=== PATIENT | male | born 1940 | race African-American/Black ===

== ENCOUNTER 2016-09-10 20:08 | Inpatient (IN) | payer OTHER ==
--- NOTE | ~2016-09-10 | HP ---
History And Physical [facility] [address] [place]. [address] NAME: DULCE DYE JR : 42 STATUS : ADM Chace PAT#: [id number] AGE: 76 ADM/REG DATE : 09/10/16 MR#: [id number] REPORT SERV DATE: 09/11/16 DICTATED BY: JOSE IVORY DATE: 09/11/16 REPORT STATUS : Draft TRANSCRIBED BY: MODL DATE: 09/11/16 DATE OF ADMISSION: 09/10/2016 CHIEF COMPLAINT: A 76-year-old male presenting with vertigo, gait disturbance, and syncopal episode. HISTORY PRESENT ILLNESS: The patient's history was obtained through careful interview with the patient, coupled with review of [facility] and [facility] medical records. The patient was actually hospitalized in June 2016 at [facility] for syncope, unstable gait (we are requesting records from [facility] to review this hospital stay). He does not believe he had any specific diagnosis given to him at that time. He has continued to have intermittent symptoms similar to that presentation over the last few months. Now on the day prior to , he felt lightheaded and actually had a syncopal episode where he hit the side of his head. He came to the emergency department last night and felt better and so was discharged back home. But now on leading up to admission, he was stumbling once again and had vertigo symptoms. He felt off balance, slightly nauseated, but no vomiting. Sometimes, he seems to fall off to the right side especially. He describes the discomfort in his right buttocks and back from when he fell two days ago, an aching quality, 8/10 in severity. He describes dyspnea on exertion with chronic bronchitis, but no current cough. No chest pain. No palpitations. No fevers or chills. He has had a chronic right foot drop ever since the knee surgery years ago. He describes of prostate symptoms with difficulty with urinary flow, nocturia, and occasional painful urination as well. REVIEW OF SYSTEMS: Otherwise, a 14-point review of systems was obtained and was negative. PAST MEDICAL HISTORY: 1. Hepatitis C. 2. Gout. 3. Elevated cholesterol. 4. Hypertension. 5. Depression. 6. Obstructive sleep apnea, but does not use a CPAP. 7. Chronic alcoholism, but has been abstinent since June 2016. There is a history of DTs. 8. Cholelithiasis. History And Physical [address] [place]. [address] NAME: DULCE DYE JR : 42 STATUS : ADM Chace PAT#: [id number] AGE: 76 ADM/REG DATE : 09/10/16 MR#: [id number] REPORT SERV DATE: 09/11/16 DICTATED BY: JOSE IVORY DATE: 09/11/16 REPORT STATUS : Draft TRANSCRIBED BY: SAKSHI DATE: 09/11/16 9. A solitary episode of atrial fibrillation remotely. 10.Leg ulcer. 11.Benign prostatic hypertrophy. PAST SURGICAL HISTORY: 1. Left knee surgery x3. 2. Lumbar spine surgery. 3. Hand surgery. 4. Femur fracture surgery. ALLERGIES: NO KNOWN DRUG ALLERGIES. SOCIAL HISTORY: Quit alcohol in June 2016, but has always been a heavy drinker of vodka and beer. He has never been a smoker. He used to use marijuana, but has quit. There is also a history of using cocaine. He has children. He lives with his sister. He worked previously for the [employer]. FAMILY HISTORY: Mother with heart disease. Father in a motor vehicle accident. CURRENT MEDICATIONS: Include albuterol inhaler; allopurinol 300 mg p.o. daily; aspirin 81 mg p.o. daily; Lipitor 40 mg p.o. daily; Lexapro 20 mg p.o. daily; Prozac 40 mg p.o. daily; melatonin 5 mg at bedtime; Percocet p.r.n.; Bactrim double strength p.o. b.i.d., started on 09/05/2016; Flomax 0.4 mg p.o. daily; trazodone 100 mg p.o. q.h.s.; and triamcinolone cream. PHYSICAL EXAMINATION: VITAL SIGNS: Temperature 97.8, pulse 85, blood pressure 127/66, respiratory rate 19, and O2 saturation 94% on room air. GENERAL: A pleasant, cooperative male, in no evidence of distress at this time. NEUROLOGICAL: Cranial nerves II through XII are intact and symmetrical. The patient has no nystagmus. The patient has 5/5 strength in upper and lower extremities that are symmetrical. HEENT: Pupils are equal, round, and reactive to light. No conjunctival pallor. No scleral icterus. Nares are patent. Oropharynx is clear of obstruction. Moist mucous membranes. NECK: Trachea midline. No thyromegaly. LYMPH: No cervical lymphadenopathy. No supraclavicular lymphadenopathy. RESPIRATORY: Clear to auscultation at bases. No wheezes, rales, or rhonchi. Normal respiratory effort. CARDIOVASCULAR: Regular rate and rhythm. No murmurs, rubs, or gallops. No current extremity edema is appreciated. ABDOMEN: Soft, nontender, and nondistended. Normal bowel sounds auscultated throughout. No hepatosplenomegaly. DERMATOLOGICAL: Warm and dry extremities. No pallor. No cyanosis. PSYCHIATRIC: Normal affect. Good mood. Alert and oriented x3. LABORATORY DATA: White blood cell count 5.0, hemoglobin 13, hematocrit 39, and platelets 166. Sodium 141, potassium 4.3, chloride 103, bicarb 30, BUN 10, creatinine 0.82, and History And Physical [address] [address] NAME: DULCE DYE JR : 42 STATUS : ADM Chace PAT#: [id number] AGE: 76 ADM/REG DATE : 09/10/16 MR#: [id number] REPORT SERV DATE: 09/11/16 DICTATED BY: JOSE IVORY DATE: 09/11/16 REPORT STATUS : Draft TRANSCRIBED BY: MODL DATE: 09/11/16 glucose 77. Urinalysis shows 4 hyaline casts, lipase 613. Troponin negative. INR 1.1. STUDIES: 1. Chest x-ray by my own evaluation shows atelectasis changes, but no acute abnormality. 2. EKG by my own evaluation shows sinus rhythm, no major abnormalities. 3. CT scan of the abdomen and pelvis shows no acute intraabdominal process. 4. CT scan of the brain without contrast shows no acute intracranial process. ASSESSMENT AND PLAN: 1. Gait disturbance, syncope, vertigo. Check an MRI of the brain. Consult Neurology. Continue aspirin. Request records from [facility] of June 2016. If the patient has orthostasis, we may need to hold trazodone. 2. Elevated lipase. Negative CT scan of the abdomen. No abdominal pain. 3. History of alcoholism, but quit in June 2016. Place on a banana bag IV daily. Check urine drug screen. 4. Hepatitis C. KPL/MODL Jose Ivory M.D. / [id number] CC: MD RAYSA Will WINIFRED
--- NOTE | ~2016-09-10 | CN ---
Consultation Report [facility] [address] [place]. [address] NAME: DULCE DYE JR : 42 STATUS : ADM Chace PAT#: [id number] AGE: 76 ADM/REG DATE : 09/10/16 MR#: [id number] REPORT SERV DATE: 09/12/16 DICTATED BY: LAVONNE MAN DATE: 09/12/16 REPORT STATUS : Draft TRANSCRIBED BY: MODL DATE: 09/12/16 NEUROLOGY CONSULTATION DATE OF CONSULTATION: 09/12/2016 REASON FOR CONSULTATION: Syncope, ataxia, and vertigo. HOSPITALIST: Doug Mckeon M.D. HISTORY OF PRESENT ILLNESS: The patient is a 76-year-old male who started having ataxia approximately a month ago. He states that his symptoms come and go. However, he started veering to the right approximately a month ago. He states that he has to use a walker when ambulating. When asked to define his dizziness more clearly, the patient has difficulty in doing so. He does mention that things do not "spin around," rather he has a feeling of imbalance. He also mentions that he has chronic right foot drop. When fitted for a foot brace, he seemed to have better balance. However, his insurance will not pay for one and this seems to cause him to fall. Sunday, he had a "blackout spell." He was just standing up and suddenly "something hit him upside the head." He passed out. He was not out for long and was back to his self. He did not feel this coming on. He did not experience vertiginous symptoms, nor did he experience dizziness. He has not been sick. He has not had an upper respiratory infection, fever, chills, diarrhea, or nausea. The patient also mentions that he has had surgeries on his left eye. Since his surgery, he will occasionally have eye pain above the eye. He denies any chronic headaches. He denies any double vision or temporal pain. PAST MEDICAL HISTORY: Hepatitis C, gout, hyperlipidemia, hypertension, depression, obstructive sleep apnea (noncompliant with CPAP), chronic alcohol abuse (abstinent since 06/2016), history of DTs, cholelithiasis, one episode of atrial fibrillation, leg ulcer, and BPH. PAST SURGICAL HISTORY: Left total knee arthroplasty x3, lumbar surgery, right thumb surgery, left femur fracture with ORIF, and bilateral cataract extraction with lens implantation. HOME MEDICATION LIST: Includes ProAir inhaler, Zyloprim 300 mg daily, aspirin 81 mg daily, Lipitor 40 mg at bedtime, Lexapro 20 mg daily plus Prozac 40 mg daily, melatonin 5 mg at bedtime, Percocet 5/325 mg p.r.n., Bactrim DS one tablet b.i.d. x7 days, Flomax 0.4 mg q.a.m., trazodone 100 mg at bedtime, and triamcinolone 0.1% cream topically twice a day to affected areas. ALLERGIES: NONE. SOCIAL HISTORY: The patient is single. He lives with his sister. He has 10 children. He works with the [employer]. He has been a heavy drinker most of his Consultation Report [address] [address] NAME: DULCE DYE JR : 42 STATUS : ADM Chace PAT#: [id number] AGE: 76 ADM/REG DATE : 09/10/16 MR#: [id number] REPORT SERV DATE: 09/12/16 DICTATED BY: LAVONNE MAN DATE: 09/12/16 REPORT STATUS : Draft TRANSCRIBED BY: SAKSHI DATE: 09/12/16 life, drinking beer and vodka. He has a history of marijuana and cocaine abuse. FAMILY HISTORY: His mother from coronary artery disease. His dad in a motor vehicle accident. REVIEW OF SYSTEMS: See HPI. PHYSICAL EXAMINATION: VITAL SIGNS: The patient is a 76-year-old male who stands 6 feet 1 inch tall and weighs 206 pounds. He is afebrile. Heart rate 81, respiratory rate 18, O2 saturations on room air of 93%, blood pressure 139/73. NEURO: The patient is oriented x4. He does communicate appropriately. Speech is clear. Language is fluent. Right pupil 2 mm, left pupil 4 mm and irregularly shaped. They are reactive. Cranial nerves 2 through 12 are intact. He can finger to nose without ataxia. No pronator drift. Upper extremity strength 5/5. Upper extremity reflexes 1+ bilaterally. He does report slightly diminished sensation on the left when compared to the right. Lower extremity strength is 4/5 bilaterally. He does have chronic right foot drop. Unable to elicit patellar reflexes on the left (knee surgery x3), in the right, 2+. Downgoing toes. The patient does have markedly diminished sensation in the lower extremities. Decreased pinprick and light touch sensation from the toes to the knees bilaterally. Decreased temperature sensation in the same distribution and vibratory sense. Position sense is not intact. I did not get him up to ambulate. NECK: No carotid bruits, JVD, or thyromegaly. CHEST: Lung sounds clear. CARDIAC: Regular rate and rhythm. LABORATORY DATA: CBC is normal. BMP normal. UA negative for UTI. INR 1.1. Ammonia level 158, lipase 613. TSH normal. Urine drug screen positive for opiates. MRI of the brain, no acute changes. Midbrain atrophy. ASSESSMENT/PLAN: 1. Ataxia, multifactorial in nature. The patient has peripheral neuropathy. Lab work will be checked. PT/OT consulted. He will be fit for a brace for his right footdrop. Safety precautions are in place and patient education in regard to peripheral neuropathy. 2. The patient has hyperammonemia. His ammonia level will be rechecked along with liver panel. 3. Questionable cervical stenosis. He will undergo an MRI of the C-spine. 4. Syncope with collapse. Etiology unknown. Orthostatic vital signs will be checked. This does not sound like seizure by history and his MRI came back negative for an acute event. 5. History of alcohol abuse. The patient will be placed on thiamine and folate p.o. Consultation Report [address] [address] NAME: DULCE DYE : 42 STATUS : ADM Chace PAT#: [id number] AGE: 76 ADM/REG DATE : 09/10/16 MR#: [id number] REPORT SERV DATE: 09/12/16 DICTATED BY: LAVONNE MAN DATE: 09/12/16 REPORT STATUS : Draft TRANSCRIBED BY: SAKSHI DATE: 09/12/16 Thank you for including us in consultation. We will follow with you. XAVIER/SAKSHI Lavonne Man [facility]- / [id number] CC: MD RAYSA Will WINIFRED
--- NOTE | ~2016-09-10 | DS ---
Discharge Summary [facility] [address]. [address] NAME: DULCE DYE JR : 42 STATUS : DIS IN PAT#: [id number] AGE: 76 ADM/REG DATE : 09/10/16 MR#: [id number] REPORT SERV DATE: 09/16/16 DICTATED BY: DELTA DUNBAR DATE: 09/15/16 REPORT STATUS : Draft TRANSCRIBED BY: MODL DATE: 09/15/16 ADMISSION DATE: 09/10/2016 DISCHARGE DATE: 09/15/2016 PROCEDURES DONE: 1. On 09/10/2016, CT of the brain without contrast: Unremarkable noncontrast head CT. No acute intracranial pathology. 2. On 09/10/2016, chest x-ray: There are atelectasis changes left lung base suggestive of injury to the underlying chest wall on the left side. 3. On 09/10/2016, x-ray right ribs: Atelectatic changes left, not right-sided, questionable possible fracture of left ribs. May wish to repeat left rib series or pursue ultrasound. No focal area of tenderness over the rib cage to demonstrate nondisplaced fracture. 4. On 09/11/2016, MRI of the head without contrast. There is some mild mid brain atrophy, nonspecific, that is sometimes to be seen as a precursor to a Parkinson type presentation. Ventricles are midline, hemispheres reflect at best some mild atrophy and there are some mild deep white matter, small vessel ischemic gliotic changes in right and left ventricles. 5. On 09/11/2016, 2D echo: Left ventricular function intact at 55%. Left ventricular diastolic dysfunction. Right ventricular systolic function intact. Mild aortic regurg. No previous study to compare. 6. On 09/12/2016, MRA of the head without contrast: Unremarkable intracranial MRA. Developmental variance small right A1 segment. The patient anterior communicating artery allowing supply to the right anterior cerebral artery from the left anterior for circulation. Right posterior cerebral artery supplied from the anterior circulation through a patent posterior communicating artery. 7. On 09/12/2016, MRA of the neck: Unremarkable MRI of the carotid arteries, no significant atherosclerotic plaque or stenosis. Normal caliber and anterograde flow bilateral vertebral arteries. 8. On 09/12/2016, MRA of cervical: Severe degenerative disk disease C3-C4, moderate degenerative disk disease C4-C5, and severe degenerative disease C5-C7. Multilevel [id number] disk osteophyte formation resulting in mild central spinal stenosis C2- C3, very mild central spinal stenosis C5-C6, and moderate central spinal stenosis C6-C7 of questionable significance. No associated cord contour deformity or signal changes. No significant neural foraminal narrowing. Straightening of the usual cervical spine lordosis, although otherwise normal alignment. CONSULT: Neurology. REASON FOR ADMISSION: Vertigo with gait disturbance. HISTORY OF HOSPITAL STAY: A 76-year-old black male with past medical history of hepatitis C; gout; hypercholesterolemia; hypertension; obstructive sleep apnea, but not using CPAP; history of alcoholism, abstinence since June 2016; BPH, presenting with vertigo with gait disturbance, unknown duration. The patient has been having issue with his dizziness. Apparently, the patient states he has not been able to get items off a shelf as well as Discharge Summary [address] [place]. [address] NAME: DULCE DYE JR : 42 STATUS : DIS IN [facility]#: [id number] AGE: 76 ADM/REG DATE : 09/10/16 MR#: [id number] REPORT SERV DATE: 09/16/16 DICTATED BY: DELTA DUNBAR DATE: 09/15/16 REPORT STATUS : Draft TRANSCRIBED BY: SAKSHI DATE: 09/15/16 tying his shoe lace without getting dizzy. The patient seems to be suffering from benign positional vertigo. The patient was started on scopolamine and meclizine, which improved the patient dizziness. However, the medication has also been titrated up and his symptoms have greatly improved. DISPOSITION: The patient is feeling fine, no complaint. ACTIVITY: As tolerated. DIET: Cardiac. INSTRUCTIONS UPON DISCHARGE: The patient to follow up with PMD within one to two weeks. MEDICATIONS UPON DISCHARGE: 1. Allopurinol 300 mg p.o. daily. 2. Aspirin 81 mg p.o. daily. 3. Lipitor 40 mg p.o. q.h.s. 4. Lexapro 20 mg p.o. daily. 5. Prozac 40 mg p.o. daily. 6. Melatonin 5 mg p.o. q.h.s. 7. Flomax 0.4 mg p.o. daily. 8. Trazodone 100 mg p.o. q.h.s. 9. Triamcinolone cream 0.1% application topical b.i.d. 10.Oxycodone 5/325 mg one tablet p.o. q.6 hours p.r.n. 11.ProAir one to two puffs q.4 hours p.r.n. DIAGNOSES UPON DISCHARGE: 1. Vertigo with gait disturbance secondary to benign positional vertigo. 2. Benign positional vertigo. 3. History of alcohol abuse, quit in June 2016. 4. Hepatitis C. 5. Gout. 6. Hypercholesterolemia. 7. Hypertension. 8. Depression. 9. History of obstructive sleep apnea, not on continuous positive airway pressure. VIET/SAKSHI Delta Dunbar MD / [id number] CC: Discharge Summary [address] [address] NAME: DULCE DYE JR : 42 STATUS : DIS IN PAT#: [id number] AGE: 76 ADM/REG DATE : 09/10/16 MR#: [id number] REPORT SERV DATE: 09/16/16 DICTATED BY: DELTA DUNBAR DATE: 09/15/16 REPORT STATUS : Draft TRANSCRIBED BY: SAKSHI DATE: 09/15/16 MD Leigh Carias MD
[~2016-09-10 20:08] MED LIST: AMB10 PO; CIALIS10 MG PO; ENDOCET1 TA3 PO; FLEX PO; LEXAPRO20 PO; LORT7 PO; LORTAB 5 PO; NORV10 PO; OS500+D PO; PEP20 PO; ULTRAM50 PO; VENTOLIN HFA INH; Z300 PO
[2016-09-10] MEDS ORDERED: MELATONIN5 M1 PO (23:49)
[2016-09-10] MEDS ORDERED: SEROQUEL50 MG PO (23:49)
[2016-09-10] MEDS ORDERED: PROZAC40 MG PO (23:49)
[2016-09-10] MEDS ORDERED: FLOMAX4 PO (23:50)
[2016-09-10] MEDS ORDERED: BACTRIM DS1 TAB PO (23:50)
[2016-09-10] MEDS ORDERED: LEXAPRO20 PO (23:51)
[2016-09-10] MEDS ORDERED: ASAB PO (23:51)
[2016-09-10] MEDS ORDERED: LIPITOR40 PO (23:51)
[2016-09-10] MEDS ORDERED: Z300 PO (23:51)
[2016-09-10] MEDS ORDERED: IMDUR30 PO (23:52)
[2016-09-10] MEDS ORDERED: PRIN5 PO (23:52)
[2016-09-11] LABS: BASOPHILS 0.2 %; BASOPHILS ABSOLUTE 0.01 10/3/uL (0.0-0.16); EOSINOPHILS 5.8 %; EOSINOPHILS ABSOLUTE 0.29 10/3/uL (0.0-0.53); HEMATOCRIT 38.8 % (40.0-51.0); IMMATURE GRANULOCYTES 0.2 %; IMMATURE GRANULOCYTES ABSOLUTE 0.01 10/3/uL (0.0-0.11); MEAN CORPUS HGB CONC 33.5 g/dL (32.0-36.0); MEAN CORPUSCULAR HEMOGLOB 31.5 pg (26.0-34.0); MEAN CORPUSCULAR VOLUME 93.9 fL (80-100); MEAN PLATELET VOLUME 9.4 fL (9.2-13.0); MONOCYTES 6.6 %; MONOCYTES ABSOLUTE 0.33 10/3/uL (0.21-1.20); NEUTROPHILS 65.2 %; NEUTROPHILS ABSOLUTE 3.26 10/3/uL (2.02-8.40); PLATELET COUNT 166 10/3/uL (150-400); RBC DISTRIBUTION WIDTH 14.5 % (12.0-16.0); RED CELL COUNT 4.13 10/6/uL (4.7-6.1)
[2016-09-11 00:01] LABS: MANUAL DIFF NO %
[2016-09-11] MEDS ORDERED: PCET PO (00:07)
[2016-09-11 00:08] LABS: INTERNATIONAL NORMAL RATI 1.1 UNITS (-); PARTIAL THROMBO TIME 32.7 SEC (22.5-37.2); PROTIME (NOT ORD) 13.7 SEC (12.0-14.5)
[2016-09-11] MEDS ORDERED: PROAIR HFA INH (00:18)
[2016-09-11] MEDS ORDERED: TRIAMCINOLONE C80 GM TOP (00:19)
[2016-09-11] MEDS ORDERED: TRAZ100 PO (00:20)
[2016-09-11 00:22] LABS: BUN (BLOOD UREA NITROGEN) 10 MG/DL (6-23); CALCIUM, SERUM 8.7 MG/DL (8.5-10.4); CHEST PAIN PROFILE TAT 0 Hrs 28 Mins; CHLORIDE, SERUM 103 MMOL/L (96-112); CO2 (CARBON DIOXIDE) 30 MMOL/L (24-34); CREATININE 0.82 MG/DL (0.70-1.30); GFR AFRICAN AMERICAN 100 ML/MIN (>=60); GFR NON AFRICAN AMERICAN 87 ML/MIN (>=60); GLUCOSE, SERUM 77 MG/DL (60-99); POTASSIUM, SERUM 4.3 MMOL/L (3.5-5.3); SODIUM, SERUM 141 MMOL/L (135-148); TROPONIN I <0.02 NG/ML (<0.05)
[2016-09-11 06:33] LABS: BASOPHILS 0.2 %; BASOPHILS ABSOLUTE 0.01 10/3/uL (0.0-0.16); EOSINOPHILS 6.9 %; EOSINOPHILS ABSOLUTE 0.33 10/3/uL (0.0-0.53); HEMATOCRIT 40.6 % (40.0-51.0); HEMOGLOBIN 13.8 g/dL (13.6-17.8); IMMATURE GRANULOCYTES 0.2 %; IMMATURE GRANULOCYTES ABSOLUTE 0.01 10/3/uL (0.0-0.11); LYMPHOCYTES 17.9 %; LYMPHOCYTES ABSOLUTE 0.85 10/3/uL (0.67-4.30); MEAN CORPUSCULAR HEMOGLOB 32.2 pg (26.0-34.0); MEAN CORPUSCULAR VOLUME 94.6 fL (80-100); MEAN PLATELET VOLUME 9.6 fL (9.2-13.0); MONOCYTES 9.5 %; MONOCYTES ABSOLUTE 0.45 10/3/uL (0.21-1.20); NEUTROPHILS 65.3 %; PLATELET COUNT 177 10/3/uL (150-400); RBC DISTRIBUTION WIDTH 14.3 % (12.0-16.0); RED CELL COUNT 4.29 10/6/uL (4.7-6.1); WHITE BLOOD CELLS 4.8 10/3/uL (4.5-10.5)
[2016-09-11 06:34] LABS: MANUAL DIFF NO %
[2016-09-11 06:51] LABS: ALBUMIN 3.5 G/DL (3.5-5.0); BUN (BLOOD UREA NITROGEN) 9 MG/DL (6-23); CALCIUM, SERUM 8.7 MG/DL (8.5-10.4); CHLORIDE, SERUM 106 MMOL/L (96-112); CHOL/HDL RATIO(NOT ORDER) 1.5 (0-5); CHOLESTEROL 126 MG/DL (< 200); CO2 (CARBON DIOXIDE) 26 MMOL/L (24-34); GFR AFRICAN AMERICAN 101 ML/MIN (>=60); GFR NON AFRICAN AMERICAN 87 ML/MIN (>=60); GLOBULIN 3.6 G/DL (2.5-4.1); GLUCOSE, SERUM 76 MG/DL (60-99); HDL CHOLESTEROL 85 MG/DL (> 39); LDL CHOLESTEROL 26 MG/DL (< 130); NON-HDL CHOLESTEROL 41 MG/DL (< 160); POTASSIUM, SERUM 4.2 MMOL/L (3.5-5.3); SGOT(AST) 29 U/L (5-40); SGPT(ALT) 30 U/L (5-65); SODIUM, SERUM 140 MMOL/L (135-148); TOTAL BILIRUBIN 0.7 MG/DL (0-1.2); TOTAL PROTEIN 7.1 G/DL (6.0-8.5); TRIGLYCERIDE 75 MG/DL (< 150); TROPONIN I <0.02 NG/ML (<0.05)
[2016-09-11 06:54] LABS: ALKALINE PHOSPHATASE 74 U/L (45-117); PHOSPHORUS, SERUM 3.6 MG/DL (2.5-4.5)
[2016-09-11 07:56] LABS: SED RATE 8 MM/HR (0-15)
[2016-09-11 08:03] LABS: B NATRIURETIC PEPTIDE (BNP) 66.6 PG/ML (< 100.0)
[2016-09-11 13:02] LABS: INTERNATIONAL NORMAL RATI 1.1 UNITS (-); PARTIAL THROMBO TIME 37.5 SEC (22.5-37.2); PROTIME (NOT ORD) 13.9 SEC (12.0-14.5)
[2016-09-12 01:08] LABS: AMPHETAMINES (NOT ORD) NEG (NEG); BENZODIAZEPINES (NOT ORD) NEG (NEG); CANNABINOIDS (THC) NEG (NEG); COCAINE (NOT ORDERED) NEG (NEG); PHENCYCLIDINE(PCP) NEG (NEG)
[2016-09-12 01:09] LABS: BARBITURATES (NOT ORDERED NEG (NEG); OPIATES POS (NEG); TRICYCLICS NEG (NEG)
[2016-09-12 07:00] LABS: BASOPHILS 0.2 %; BASOPHILS ABSOLUTE 0.01 10/3/uL (0.0-0.16); EOSINOPHILS 6.4 %; EOSINOPHILS ABSOLUTE 0.28 10/3/uL (0.0-0.53); HEMATOCRIT 37.8 % (40.0-51.0); HEMOGLOBIN 12.8 g/dL (13.6-17.8); IMMATURE GRANULOCYTES 0.2 %; IMMATURE GRANULOCYTES ABSOLUTE 0.01 10/3/uL (0.0-0.11); LYMPHOCYTES ABSOLUTE 0.79 10/3/uL (0.67-4.30); MEAN CORPUS HGB CONC 33.9 g/dL (32.0-36.0); MEAN CORPUSCULAR HEMOGLOB 31.6 pg (26.0-34.0); MEAN CORPUSCULAR VOLUME 93.3 fL (80-100); MEAN PLATELET VOLUME 9.4 fL (9.2-13.0); MONOCYTES 10.9 %; MONOCYTES ABSOLUTE 0.48 10/3/uL (0.21-1.20); NEUTROPHILS 64.3 %; NEUTROPHILS ABSOLUTE 2.83 10/3/uL (2.02-8.40); PLATELET COUNT 163 10/3/uL (150-400); RBC DISTRIBUTION WIDTH 14.1 % (12.0-16.0); RED CELL COUNT 4.05 10/6/uL (4.7-6.1); WHITE BLOOD CELLS 4.4 10/3/uL (4.5-10.5)
[2016-09-12 07:06] LABS: MANUAL DIFF NO %
[2016-09-12 07:13] LABS: A/G RATIO 1.1 (0.7-1.9); ALBUMIN 3.3 G/DL (3.5-5.0); ALKALINE PHOSPHATASE 64 U/L (45-117); BUN (BLOOD UREA NITROGEN) 10 MG/DL (6-23); CALCIUM, SERUM 8.6 MG/DL (8.5-10.4); CHLORIDE, SERUM 106 MMOL/L (96-112); CO2 (CARBON DIOXIDE) 24 MMOL/L (24-34); CREATININE 0.73 MG/DL (0.70-1.30); GFR AFRICAN AMERICAN 105 ML/MIN (>=60); GFR NON AFRICAN AMERICAN 91 ML/MIN (>=60); GLOBULIN 3.1 G/DL (2.5-4.1); GLUCOSE, SERUM 76 MG/DL (60-99); SGOT(AST) 25 U/L (5-40); SGPT(ALT) 28 U/L (5-65); SODIUM, SERUM 139 MMOL/L (135-148); TOTAL BILIRUBIN 1.2 MG/DL (0-1.2); TOTAL PROTEIN 6.4 G/DL (6.0-8.5)
[2016-09-12 13:29] LABS: ALBUMIN 3.2 G/DL (3.5-5.0); DIRECT BILIRUBIN 0.2 MG/DL (0.0-0.4); TOTAL PROTEIN 6.3 G/DL (6.0-8.5)
[2016-09-12 13:30] LABS: INDIRECT BILIRUBIN(NOT ORDER) 0.5 MG/DL (0.1-0.9); TOTAL BILIRUBIN 0.7 MG/DL (0-1.2)
[2016-09-13 08:10] LABS: BASOPHILS 0.4 %; BASOPHILS ABSOLUTE 0.02 10/3/uL (0.0-0.16); EOSINOPHILS 5.5 %; EOSINOPHILS ABSOLUTE 0.27 10/3/uL (0.0-0.53); HEMATOCRIT 41.1 % (40.0-51.0); HEMOGLOBIN 13.8 g/dL (13.6-17.8); IMMATURE GRANULOCYTES 0.2 %; IMMATURE GRANULOCYTES ABSOLUTE 0.01 10/3/uL (0.0-0.11); LYMPHOCYTES 19.4 %; LYMPHOCYTES ABSOLUTE 0.95 10/3/uL (0.67-4.30); MEAN CORPUS HGB CONC 33.6 g/dL (32.0-36.0); MEAN CORPUSCULAR HEMOGLOB 32.2 pg (26.0-34.0); MEAN CORPUSCULAR VOLUME 95.8 fL (80-100); MEAN PLATELET VOLUME 9.6 fL (9.2-13.0); MONOCYTES 6.3 %; MONOCYTES ABSOLUTE 0.31 10/3/uL (0.21-1.20); NEUTROPHILS 68.2 %; NEUTROPHILS ABSOLUTE 3.33 10/3/uL (2.02-8.40); PLATELET COUNT 156 10/3/uL (150-400); RBC DISTRIBUTION WIDTH 14.5 % (12.0-16.0); RED CELL COUNT 4.29 10/6/uL (4.7-6.1); WHITE BLOOD CELLS 4.9 10/3/uL (4.5-10.5)
[2016-09-13 08:11] LABS: MANUAL DIFF NO %
[2016-09-13 08:39] LABS: A/G RATIO 0.9 (0.7-1.9); ALBUMIN 3.5 G/DL (3.5-5.0); ALKALINE PHOSPHATASE 66 U/L (45-117); BUN (BLOOD UREA NITROGEN) 10 MG/DL (6-23); CALCIUM, SERUM 8.8 MG/DL (8.5-10.4); CHLORIDE, SERUM 110 MMOL/L (96-112); CO2 (CARBON DIOXIDE) 21 MMOL/L (24-34); GFR AFRICAN AMERICAN 107 ML/MIN (>=60); GFR NON AFRICAN AMERICAN 92 ML/MIN (>=60); GLOBULIN 3.7 G/DL (2.5-4.1); GLUCOSE, SERUM 77 MG/DL (60-99); PHOSPHORUS, SERUM 3.3 MG/DL (2.5-4.5); POTASSIUM, SERUM 4.1 MMOL/L (3.5-5.3); SGOT(AST) 26 U/L (5-40); SGPT(ALT) 35 U/L (5-65); SODIUM, SERUM 141 MMOL/L (135-148); TOTAL BILIRUBIN 1.1 MG/DL (0-1.2); TOTAL PROTEIN 7.2 G/DL (6.0-8.5)
[2016-09-14 06:57] LABS: ALBUMIN 3.3 G/DL (3.5-5.0); BUN (BLOOD UREA NITROGEN) 8 MG/DL (6-23); CALCIUM, SERUM 8.5 MG/DL (8.5-10.4); CHLORIDE, SERUM 106 MMOL/L (96-112); CO2 (CARBON DIOXIDE) 23 MMOL/L (24-34); CREATININE 0.64 MG/DL (0.70-1.30); GFR AFRICAN AMERICAN 111 ML/MIN (>=60); GFR NON AFRICAN AMERICAN 96 ML/MIN (>=60); GLUCOSE, SERUM 67 MG/DL (60-99); PHOSPHORUS, SERUM 3.5 MG/DL (2.5-4.5); POTASSIUM, SERUM 3.6 MMOL/L (3.5-5.3); SODIUM, SERUM 141 MMOL/L (135-148)
[2016-09-15 06:17] LABS: ALBUMIN 3.3 G/DL (3.5-5.0); BUN (BLOOD UREA NITROGEN) 7 MG/DL (6-23); CALCIUM, SERUM 8.7 MG/DL (8.5-10.4); CHLORIDE, SERUM 109 MMOL/L (96-112); CO2 (CARBON DIOXIDE) 24 MMOL/L (24-34); CREATININE 0.81 MG/DL (0.70-1.30); GFR AFRICAN AMERICAN 101 ML/MIN (>=60); GFR NON AFRICAN AMERICAN 87 ML/MIN (>=60); GLUCOSE, SERUM 79 MG/DL (60-99); PHOSPHORUS, SERUM 3.5 MG/DL (2.5-4.5); POTASSIUM, SERUM 3.9 MMOL/L (3.5-5.3); SODIUM, SERUM 144 MMOL/L (135-148)
[2016-09-15 21:09] LABS: THIAMINE 102.2 nmol/L (()); THIAMINE MONOPHOSPHATE 4.5 nmol/L (())
== END 2016-09-15 15:19 | DRG 149 ==
LOC: ER 20:08 → 7NO 23:59
PROVIDERS: Hospitalist; Nurse Practitioner; Specialist
DX: H81.10 Benign paroxysmal vertigo, unspecified ear (principal); G62.9 Polyneuropathy, unspecified; B19.20 Unspecified viral hepatitis C without hepatic coma; R26.9 Unspecified abnormalities of gait and mobility; E78.5 Hyperlipidemia, unspecified; I10 Essential (primary) hypertension; F32.9 Major depressive disorder, single episode, unspecified; G47.33 Obstructive sleep apnea (adult) (pediatric); F10.21 Alcohol dependence, in remission; M48.02 Spinal stenosis, cervical region; M21.372 Foot drop, left foot; E78.00 Pure hypercholesterolemia, unspecified; Z79.899 Other long term (current) drug therapy
CPT/HCPCS: 70450; 70544; 70548; 70553; 71010; 71100-RT; 72141; 72170; 74176; 80048; 80053; 80061; 80069; 80076; 80305; 81001; 82140; 82150; 82533; 82550; 82607; 82746; 83690; 83735; 83880; 84100; 84425; 84443; 84484; 85025; 85610; 85652; 85730; 93005; 93306; 96374; 97110-GP; 97116-GP; 97162-GP; 97165-GO; 97530-GP; 99285; A9270-GY; A9577; J1170; J2405; J3010; J3411